=== PATIENT | female | born 1990 | race Caucasian/White ===

== ENCOUNTER → 2020-03-04 | Outpatient (CLI) | payer OTHER ==
[2020-03-04 15:05] LABS: BASO % 0.2 % (0.0-1.0); EOS # 0.1 10*3/uL (0.0-0.4); EOS % 0.8 % (1.0-4.0); HEMATOCRIT 35.6 % (37.0-47.0); LYMPH # 1.2 10*3/uL (1.3-4.4); LYMPH % 12.7 % (27.0-41.0); MEAN CORPUSCULAR HGB 30.3 pg (27.0-31.0); MEAN CORPUSCULAR HGB CONC 32.6 g/dl (33.0-37.0); MEAN PLATELET VOLUME 10.7 fl (9.6-12.3); MONO # 0.5 10*3/uL (0.1-1.0); MONO % 4.8 % (3.0-9.0); NEUT # 7.9 10*3/uL (2.3-7.9); PLATELET COUNT AUTOMATED 161 10*3/uL (130-400); RED BLOOD COUNT 3.83 10*6/uL (4.10-5.10); RED CELL DISTRI WIDTH 13.3 % (0-14.5); WHITE BLOOD COUNT 9.7 10*3/uL (4.8-10.8)
[2020-03-04 15:34] LABS: URINE AMPHETAMINES < 1000 (1000ng/ml); URINE BARBITURATES < 200 (200ng/ml); URINE BENZODIAZEPINES < 200 (200ng/ml); URINE CANNABINOIDS (THC) < 50 (50ng/ml); URINE COCAINE < 300 (300ng/ml); URINE METHADONE < 300 (300ng/ml); URINE OPIATES < 300 (300ng/ml)
[2020-03-04 15:38] LABS: URINE PHENCYCLIDINE < 25 (25ng/ml)
[2020-03-05 06:10] LABS: HEP B CORE AB, IGM Negative (Negative); HEPATITIS B SURFACE AG Negative (Negative)
[2020-03-06 11:06] LABS: HCV LOG10 7.041 (.); HCV RNA (INTERNATION UNIT) 11000000 IU/mL (.); HEPATITIS C QUANTITATION See Final Results IU/mL (.)
[2020-03-08 14:23] LABS: HEPATITIS C VIRUS ANTIBODY >11.0 s/co (0.0-0.9)
== END | disposition home or self-care (01) ==
LOC: LAB 14:23
PROVIDERS: Nurse Practitioner Women's Health
DX: Z34.82 Encounter for supervision of other normal pregnancy, second trimester (principal); Z3A.23 23 weeks gestation of pregnancy; Z86.13 Personal history of malaria

== ENCOUNTER → 2020-03-04 | Outpatient (CLI) | payer OTHER | END | disposition home or self-care (01) | LOC: US 13:13 | DX: Z34.82 Encounter for supervision of other normal pregnancy, second trimester (principal); Z3A.23 23 weeks gestation of pregnancy ==

== ENCOUNTER → 2020-04-28 | Outpatient (CLI) | payer OTHER ==
[2020-04-28 11:43] LABS: BASO % 0.2 % (0.0-1.0); EOS # 0.2 10*3/uL (0.0-0.4); EOS % 1.3 % (1.0-4.0); HEMATOCRIT 33.8 % (37.0-47.0); LYMPH # 1.8 10*3/uL (1.3-4.4); LYMPH % 14.6 % (27.0-41.0); MEAN CELL VOLUME 89.7 fl (81.0-99.0); MEAN CORPUSCULAR HGB 29.2 pg (27.0-31.0); MEAN CORPUSCULAR HGB CONC 32.5 g/dl (33.0-37.0); MEAN PLATELET VOLUME 10.7 fl (9.6-12.3); MONO # 1.1 10*3/uL (0.1-1.0); MONO % 8.4 % (3.0-9.0); NEUT # 9.3 10*3/uL (2.3-7.9); NEUT % 74.8 % (47.0-73.0); PLATELET COUNT AUTOMATED 197 10*3/uL (130-400); RED BLOOD COUNT 3.77 10*6/uL (4.10-5.10); RED CELL DISTRI WIDTH 13.1 % (0-14.5); WHITE BLOOD COUNT 12.5 10*3/uL (4.8-10.8)
== END | disposition home or self-care (01) ==
LOC: LAB 11:22
PROVIDERS: Obstetrics & Gynecology
DX: Z34.82 Encounter for supervision of other normal pregnancy, second trimester (principal); Z3A.31 31 weeks gestation of pregnancy

== ENCOUNTER → 2020-05-26 | Outpatient (CLI) | payer OTHER | END | disposition home or self-care (01) | LOC: US 14:00 | PROVIDERS: ATTEND Obstetrics & Gynecology | DX: Z34.83 Encounter for supervision of other normal pregnancy, third trimester (principal); Z3A.35 35 weeks gestation of pregnancy ==

== ENCOUNTER → 2020-05-28 | Outpatient (CLI) | payer OTHER | END | disposition home or self-care (01) | LOC: US 12:30 | PROVIDERS: ATTEND Obstetrics & Gynecology | DX: Z34.83 Encounter for supervision of other normal pregnancy, third trimester (principal); Z3A.35 35 weeks gestation of pregnancy ==